=== PATIENT | female | born 2000 | race Caucasian/White ===

== ENCOUNTER 2019-06-19 00:38 | Emergency (ER) | payer MEDICAID ==
[~2019-06-19] VITALS: Ht 167.6 cm; Wt 59.0 kg
[2019-06-19] MEDS ORDERED: SODIUM CHLORIDE 0.9% 1,000 ML IV ONE (01:01)
[2019-06-19] MEDS ORDERED: MORPHINE SULFATE 4 MG/ML CPJ (NOT FOR IM USE) IV STA (01:01)
[2019-06-19] MEDS ORDERED: ONDANSETRON HCL 4MG/2ML INJ IV STA (01:01)
[2019-06-19] MEDS ORDERED: ONDANSETRON HCL 4MG/2ML INJ IV ONE (01:15)
[2019-06-19] MEDS ORDERED: ONDANSETRON HCL 4MG/2ML INJ ONE (01:15)
[2019-06-19] MEDS ORDERED: KETOROLAC 30MG/ML VIAL IV ONE (01:45)
[2019-06-19 02:39] VITALS: BP 129/77
== END 2019-06-19 02:40 | disposition home or self-care (01) ==
LOC: ER 00:38
DX: S52.591A Other fractures of lower end of right radius, initial encounter for closed fracture (principal); V43.52XA Car driver injured in collision with other type car in traffic accident, initial encounter; Y93.89 Activity, other specified; Y92.488 Other paved roadways as the place of occurrence of the external cause
CPT/HCPCS: 29125; 73090; 73110; 96374; 96375; 96376; 99283; J1885; J2270; J2405; J7030; Z7610; A4565